=== PATIENT | male | born 1945 | race Caucasian/White ===

== ENCOUNTER 2017-01-08 15:45 | Inpatient (IN) | payer OTHER ==
--- NOTE | ~2017-01-08 | HP ---
History And Physical [id number] [facility] [place]. [address] NAME: NASRIN CARBAJAL : 41 STATUS : ADM IN [facility]#: [id number] AGE: 71 ADM/REG DATE : 01/08/17 MR#: [id number] REPORT SERV DATE: 01/08/17 DICTATED BY: ALEXANDER RINCON DATE: 01/08/17 REPORT STATUS : Draft TRANSCRIBED BY: MODJunior DATE: 01/08/17 DATE OF ADMISSION: 01/08/2017 CHIEF COMPLAINT: Fever, chills, shortness of breath, unable to move. HISTORY OF PRESENT ILLNESS: Obtained from the patient and emergency room documents, and there were no real prior medical records available for us to review. According to the information available, the patient is a pleasant 71-year-old white man, living alone, with history of heavy smoker, two packs of cigarettes daily for 65 years, presented to the emergency room with the above complaints of fever, nausea, generalized weakness, myalgias. The patient stated the symptoms started for a couple of days with a temperature of 103 at home yesterday prior to admission. Denies any cough, but seen very malaise and weak with increased urinary frequency, unable to get around due to his symptoms. In the emergency room, the patient was evaluated. He was noticed to be very ill appearing with oxygen saturation around 88% in room air, up to 99% on 2 L and after nebulizer treatment given. Further investigation reveal a sepsis syndrome as well as multilobar pneumonia/infiltrates. Therefore, the patient was referred to the Hospitalist Service for further management and evaluation. Please note, that initially the patient was referred to intensive care/critical care, but the patient was evaluated in the emergency room by a critical care/rn concurrent review, and therefore Hospitalist Service was involved. The patient denies any significant cough or productive cough. Denies any chest pain or palpitations. Denies any hemoptysis. Denies any weight loss or change in appetite recently. Denies any URI-like symptoms or runny nose or any contact outside of the area or contact with persons that travel outside of the area. Denies any recent travel outside in the [place] where risk for tick bites or insect borne disease. No one else around him is sick. He is not up to date with his influenza and pneumonia vaccinations. He continues to smoke up to his emergency room arrival. PAST MEDICAL HISTORY: As above. Significant for diabetes type 2, insulin dependent; history of asthma/COPD and heavy smoker, mentioned above. Please note, the patient may have hypertension as diagnosis. Apparently, the patient's primary care provider have him taking some lisinopril, which the patient stated he has been taking it in a while and now. PAST SURGICAL HISTORY: No surgeries or intervention in the past. SOCIAL HISTORY: He is retired. He is single. Lives by himself. He smokes two pack of cigarettes daily for 65 years as per patient (! and ?). Denies alcohol abuse. Denies illicit recreational drug abuse. FAMILY HISTORY: Significant for hypertension, diabetes. ALLERGIES: NO KNOWN DRUG ALLERGIES. HOME MEDICATIONS: According to the list provided, the patient stated that the only thing he takes presently, the patient has listed albuterol MDI two puffs inhalation q.6 hours p.r.n. shortness of breath; Lantus insulin 20-40 units subcu daily, the patient takes it p.r.n. for blood sugar more than 300; also metformin 850 mg p.o. b.i.d. History And Physical [address] [address] NAME: NASRIN CARBAJAL : 41 STATUS : ADM IN [facility]#: [id number] AGE: 71 ADM/REG DATE : 01/08/17 MR#: [id number] REPORT SERV DATE: 01/08/17 DICTATED BY: ALEXANDER RINCON DATE: 01/08/17 REPORT STATUS : Draft TRANSCRIBED BY: MODL DATE: 01/08/17 REVIEW OF SYSTEMS: As per H and P, otherwise negative in all review of systems. Please note, the comprehensive review of systems obtained and pertinent positives were including in the H and P. PHYSICAL EXAMINATION: GENERAL: Pleasant, cooperative, but pale, frail, very ill appearing. VITAL SIGNS: Upon arrival in the emergency room, showed blood pressure 138/69; pulse 114; respiratory rate 30; temperature 98.3 initially, up to 101.1 during his stay in the emergency room; oxygen saturation 88% in room air, up to 99% on 2 L by nasal cannula and after nebulizer treatment. HEENT: Pupils are equal, round, reactive to light. Extraocular movements intact. Throat, mild erythema. No exudate. No signs of tenderness. NECK: Supple. No JVD. No bruits. No thyromegaly. No lymph nodes. LUNGS: Bilateral air entry. Distant with coarse rhonchi and crackles, bilateral lung perla. Few scattered wheezes, partially cleared with coughing. HEART: Positive S1, S2. Regular rate and rhythm. Tachycardic. Positive mitral regurgitation murmur at the apex. No rub. No gallop. PMI not displaced by palpation. ABDOMEN: Positive bowel sounds. Soft, obese, nontender, no guarding, no hepatosplenomegaly. EXTREMITIES: Decreased range of motion. Osteoarthritic changes. No clubbing, no cyanosis, no edema. No calf tenderness. +2 pulses. NEUROLOGIC: Alert and oriented x3. Grossly nonfocal. Mild generalized weakness. Cranial nerves 2 through 12 grossly intact. Motor strength 5/5 symmetrical and bilateral. Deep tendon reflexes, 2/2, symmetrical and bilateral. BACK: With decreased range of motion. No focal localized tenderness. No CVA tenderness. SKIN: No bruises, no rashes, no lacerations. SIGNIFICANT LABORATORY DATA: Chest x-ray (personal reading) showed multifocal opacities, right and left lung perla (? postobstructive). EKG (personal reading) showed sinus tachycardia at 109 beats per minute. No acute ST elevation. ABG done in room air showed pH 7.43/PaCO2 of 32/pO2 of 54 (21% FiO2). Urinalysis showed protein 33.0, negative LE, negative nitrite, rbc's 7, lactate 1.9. Sodium 135, potassium 3.8, chloride 100, bicarb 29, BUN 15, creatinine 1.34, glucose 325, calcium 8.7. Liver function tests within normal limits. Lipase 112. White cell count 14.9, hemoglobin 12.5, platelet count 103. PTT 40.4 with a PT 15.8. ASSESSMENT AND PLAN/PROBLEM LIST: The patient is a pleasant 71-year-old man admitted with sepsis and multilobar pneumonia. IMPRESSION: 1. Sepsis due to pneumonia with several criteria as documented in the chart. We are going to check a procalcitonin level. Obtain blood cultures, sputum culture, and monitor clinical response to medical treatment. Provide antibiotic coverage as per pneumonia protocol. 2. Pulmonary:. a. Pneumonia, but likely bacterial, multilobar, right and left lobe. History And Physical [address] [address] NAME: NASRIN CARBAJAL : 41 STATUS : ADM IN [facility]#: [id number] AGE: 71 ADM/REG DATE : 01/08/17 MR#: [id number] REPORT SERV DATE: 01/08/17 DICTATED BY: ALEXANDER RINCON DATE: 01/08/17 REPORT STATUS : Draft TRANSCRIBED BY: MODJunior DATE: 01/08/17 b. Chronic obstructive pulmonary disease exacerbation. c. Acute hypoxemic respiratory failure. d. Tobacco dependence disorder. e. Possible lung masses and possible postobstructive pneumonia. For all the above, the patient has been placed on the monitored setting. Provide adequate oxygen supplementation, bronchodilator therapy including Dulera 200/5 mcg two puffs b.i.d. and DuoNeb. Provide antibiotic coverage with Levaquin 750 mg IV daily. Obtain sputum culture and blood cultures. Monitor lactate level as for sepsis protocol in 3 hours from the initial one and check a procalcitonin level. Provide smoking cessation education and offer nicotine replacement therapy as a nicotine patch 21 mg daily. We will obtain a CT scan of the chest without contrast to evaluate for possible lung mass/postobstructive pneumonia. 1. Diabetes type 2, uncontrolled, insulin dependent, with complications. Continue long- acting insulin, Levemir 15 units subcu b.i.d. Hold metformin for now. Use sliding scale. Provide diabetic education. 2. Hematologic problem:. a. Thrombocytopenia/low platelets. Continue to monitor for now (question etiology). b. Coagulopathy with elevated PT and INR. Continue to monitor for now. No signs of obvious bleeding at this moment. 3. Anemia, normocytic. Continue to monitor H and H. 4. Acute kidney injury, mild. Provide adequate IV hydration. Monitor urinary output. 5. History of hypertension. Apparently, he supposed to take IRVING inhibitor in the past. Continue to monitor for now. Use IV hydralazine p.r.n. for increased blood pressure. PROGNOSIS: Moderate for this admission. Discussed with patient. Patient's questions were answered in full. Please note, the patient is a full code at this moment as discussed with the patient at bedside. Please note, also the written H and P, written orders, and instructions. Please note, there were more than 35+ minutes spent of critical care time during this admission process. MAIA/MARILYNN Alexander Rincon M.D. / [id number] CC: Monique Singh M.D.
--- NOTE | ~2017-01-08 | DS ---
Discharge Summary [facility] [address] [place]. [address] NAME: NASRIN CARBAJAL : 41 STATUS : DIS IN PAT#: [id number] AGE: 71 ADM/REG DATE : 01/08/17 MR#: [id number] REPORT SERV DATE: 01/14/17 DICTATED BY: JOEY ALANIZ DATE: 01/13/17 REPORT STATUS : Draft TRANSCRIBED BY: MODL DATE: 01/13/17 ADMISSION DATE: 01/08/2017 DISCHARGE DATE: 01/13/2017 HISTORY OF PRESENT ILLNESS: The patient is a 71-year-old male with a history of diabetes type 2, hypertension, asthma/COPD, and tobacco abuse, who presented to the hospital with a complaint of fevers, chills, shortness of breath, and unable to move. For further details, please refer to H and P dictated by Dr. Petit on 01/08/2017. HOSPITAL COURSE: Upon presentation to the hospital, the patient was noted to be in sepsis, admitted to the intermediate care unit for further management. The patient was managed on IV antibiotics. His workup on initial presentation did note a positive chest x-ray consistent with pneumonia, which was the likely source of his sepsis. Also the same chest x ray also noted a mass in the left lower lobe. Given the patient being in sepsis, the patient was managed on IV antibiotics, with subsequent improvement in his symptoms. The patient was therefore transferred to a regular medical floor. I assumed care of the patient on 01/12/2017. At the time of my assumption of care, the patient was no longer septic and was hemodynamically stable. Upon chart review, I noted the chest x-ray finding with the concerning mass. CT scan with contrast was subsequently obtained, which noted around 6 x 4.5 x 6.6 cm mass in the left lower lobe suspicious for malignancy. Given the patient's risk factor of greater than 130 pack-year smoking history, I discussed the case with Radiology and from their standpoint the earliest that biopsy could be done would be on 01/15/2017. The radiologist also said that the patient could also be worked up as an outpatient. Given my concern of the patient being lost to followup, my initial plan was to keep the patient in-house for biopsy on Saturday, however, upon discussions with the patient, he informs me that he does have a primary care physician and that he would like for the mass to be worked up on an outpatient basis stating that he would be compliant with followup. Also, an attempt was made to schedule the patient prior to discharge, however, given that today is Saturday and offices are closed, this proved difficult. The floor community youth secretary then assessed by researching better discharge alternatives, so plan that was developed is that order will be written for the biopsy, it will be faxed over to the processor, so that the order can be placed for the patient to have the biopsy on 01/15/2017. Also given his significant smoking history, the patient have been counseled on the urgency of cessation of tobacco use. The patient voiced understanding and is willing to comply. Plan will be to discharge the patient on a nicotine patch and the patient has been instructed to quit smoking and avoid to secondhand smoke, which he is agreeable to. The patient, therefore, will be discharged today, to follow with the lung biopsy on 01/15/2017. Plan has been discussed with the patient, who voices understanding and is agreeable with this plan. All questions were answered and all concerns addressed. DISCHARGE DIAGNOSES: 1. Left lower lung lobe mass. 2. Pneumonia. 3. Chronic obstructive pulmonary disease exacerbation. 4. Diabetes, type 2. 5. Obesity. Discharge Summary [address] [address] NAME: NASRIN CARBAJAL : 41 STATUS : DIS IN PAT#: [id number] AGE: 71 ADM/REG DATE : 01/08/17 MR#: [id number] REPORT SERV DATE: 01/14/17 DICTATED BY: JOEY ALANIZ DATE: 01/13/17 REPORT STATUS : Draft TRANSCRIBED BY: MARILYNN DATE: 01/13/17 6. Tobacco abuse. 7. Tobacco abuse counseling. DISCHARGE MEDICATIONS: 1. Ceftin 500 mg p.o. b.i.d. 2. Insulin Lantus 20 to 40 units subcu daily p.r.n. 3. Metformin 850 mg p.o. with breakfast and dinner. The patient has been instructed not to take metformin for the next 48 hours. The patient to resume metformin on 01/15/2017. 4. Nicotine transdermal 21 mg topical daily. 5. Albuterol 2 puff inhalations q.6 hours p.r.n. IMAGIN. Portable chest x-ray. Impression: Multifocal masslike opacities involving the right and left lung concerning for multifocal infection, given the clinical history underlying malignancy may be present as well. 2. COPD. Chest CT with contrast. Impression: Round 6 x 4.5 x 6.6 cm mass left lower lobe suspicious for malignancy until proven otherwise. 3. Large acute right upper lobe pneumonia. 4. Mildly enlarged mediastinal lymph nodes, which may represent reactive adenopathy or metastatic disease. 5. Bibasilar atelectasis and small pleural effusion. DISPOSITION: The patient will be discharged home to follow up with primary care physician and Radiology as outpatient for biopsy on 01/15/2017. ACTIVITY: As tolerated. DIET: Diabetic diet. Greater than 40 minutes was spent providing counseling, discussion of case with consultants, discussion of case with nursing staff, coordinating discharge, medication reconciliation, writing prescription. DICTATED BY: MD CURTIS Beaulieu/MARILYNN Joey Alaniz MD / [id number] CC: Discharge Summary [address] [address] NAME: NASRIN CARBAJAL : 41 STATUS : DIS IN PAT#: [id number] AGE: 71 ADM/REG DATE : 01/08/17 MR#: [id number] REPORT SERV DATE: 01/14/17 DICTATED BY: JOEY ALANIZ DATE: 01/13/17 REPORT STATUS : Draft TRANSCRIBED BY: MODJunior DATE: 01/13/17 MD Viraj Beaulieu M.D.
[2017-01-08 14:41] LABS: WBC (NOT ORDERED) (RFLEX) 0 (0-5)
[2017-01-08 14:44] LABS: BASOPHILS 0.2 %; BASOPHILS ABSOLUTE 0.03 10/3/uL (0.0-0.16); EOSINOPHILS 0.1 %; EOSINOPHILS ABSOLUTE 0.01 10/3/uL (0.0-0.53); HEMOGLOBIN 12.5 g/dL (13.6-17.8); IMMATURE GRANULOCYTES 0.3 %; LYMPHOCYTES 49.5 %; LYMPHOCYTES ABSOLUTE 7.36 10/3/uL (0.67-4.30); MEAN CORPUS HGB CONC 32.9 g/dL (32.0-36.0); MEAN CORPUSCULAR HEMOGLOB 26.6 pg (26.0-34.0); MEAN PLATELET VOLUME 10.1 fL (9.2-13.0); MONOCYTES 5.6 %; MONOCYTES ABSOLUTE 0.84 10/3/uL (0.21-1.20); NEUTROPHILS 44.3 %; NEUTROPHILS ABSOLUTE 6.58 10/3/uL (2.02-8.40); PLATELET COUNT 103 10/3/uL (150-400); RBC DISTRIBUTION WIDTH 14.5 % (12.0-16.0); WHITE BLOOD CELLS 14.9 10/3/uL (4.5-10.5)
[2017-01-08 14:45] LABS: IMMATURE GRANULOCYTES ABSOLUTE 0.05 10/3/uL (0.0-0.11); MANUAL DIFF NO %; MEAN CORPUSCULAR VOLUME 80.9 fL (80-100)
[2017-01-08 14:53] LABS: INTERNATIONAL NORMAL RATI 1.3 UNITS (-); PARTIAL THROMBO TIME 40.4 SEC (22.5-37.2); PROTIME (NOT ORD) 15.8 SEC (12.0-14.5)
[2017-01-08 15:01] LABS: ALBUMIN 3.5 G/DL (3.5-5.0); ALKALINE PHOSPHATASE 39 U/L (45-117); BUN (BLOOD UREA NITROGEN) 15 MG/DL (6-23); CALCIUM, SERUM 8.7 MG/DL (8.5-10.4); CHLORIDE, SERUM 100 MMOL/L (96-112); CO2 (CARBON DIOXIDE) 29 MMOL/L (24-34); CREATININE 1.34 MG/DL (0.70-1.30); GFR AFRICAN AMERICAN 60 ML/MIN (>=60); GFR NON AFRICAN AMERICAN 52 ML/MIN (>=60); LACTATE 1.9 MMOL/L (0.3-2.4); POTASSIUM, SERUM 3.8 MMOL/L (3.5-5.3); SGOT(AST) 13 U/L (5-40); SGPT(ALT) 22 U/L (5-65); SODIUM, SERUM 135 MMOL/L (135-148); TOTAL PROTEIN 7.2 G/DL (6.0-8.5)
[2017-01-08 15:02] LABS: ASCORBIC ACID (UR NOT ORDER) NEG (NEG); BILIRUBIN, URINE NEGATIVE (NEG); ER URINALYSIS TAT 0 Hrs 22 Mins; KETONE, URINE NEGATIVE (NEG); LEUKOCYTE ESTERASE(NOT OR NEG (NEG); NITRITE (URINE) NEG (NEG)
[2017-01-08 15:06] LABS: A/G RATIO 0.9 (0.7-1.9); GLOBULIN 3.7 G/DL (2.5-4.1); GLUCOSE, SERUM 325 MG/DL (60-99)
[2017-01-08 15:17] LABS: BASOPHILS 1 %; BASOPHILS ABSOLUTE (CALC) 0.15 10/3/uL (0.0-0.16); ER DIFF TAT 0 Hrs 37 Mins; LYMPHOCYTES 30 %; LYMPHOCYTES ABSOLUTE (CALC) 4.47 10/3/uL (0.67-4.30); MONOCYTES 3 %; MONOCYTES ABSOLUTE (CALC) 0.45 10/3/uL (0.21-1.20); NEUTROPHILS ABSOLUTE (CALC) 9.83 10/3/uL (2.02-8.40); SEGMENTED NEUTROPHIL (0) 66 %; TOTAL NUCLEATED CELLS 100
[2017-01-08 15:21] LABS: PATH REVIEW YES; SMUDGE CELLS OCC
[2017-01-08 15:22] LABS: TEARDROP SHAPED RBCS FEW (3-10/OIF)
[2017-01-08 15:23] LABS: PLATELET ESTIMATE SLT DEC (ADEQUATE)
[~2017-01-08 15:45] MED LIST: GLUCPH8 PO; LANTUS SC; PROAIR HFA INH
[2017-01-08 17:20] LABS: CK-MB < 0.5 NG/ML; CPK 98 U/L (0-200)
[2017-01-08 23:02] LABS: HEMOGLOBIN 11.3 g/dL (13.6-17.8); MEAN CORPUS HGB CONC 33.4 g/dL (32.0-36.0); MEAN CORPUSCULAR HEMOGLOB 27.3 pg (26.0-34.0); MEAN CORPUSCULAR VOLUME 81.6 fL (80-100); MEAN PLATELET VOLUME 10.5 fL (9.2-13.0); PLATELET COUNT 93 10/3/uL (150-400); RBC DISTRIBUTION WIDTH 14.4 % (12.0-16.0); RED CELL COUNT 4.14 10/6/uL (4.7-6.1)
[2017-01-08 23:07] LABS: HEMATOCRIT 33.8 % (40.0-51.0)
[2017-01-08 23:08] LABS: DIFFERENTIAL ORDERED Y
[2017-01-08 23:22] LABS: BUN (BLOOD UREA NITROGEN) 18 MG/DL (6-23); CALCIUM, SERUM 8.1 MG/DL (8.5-10.4); CHLORIDE, SERUM 104 MMOL/L (96-112); CREATININE 1.19 MG/DL (0.70-1.30); GFR AFRICAN AMERICAN 70 ML/MIN (>=60); GFR NON AFRICAN AMERICAN 60 ML/MIN (>=60); GLUCOSE, SERUM 267 MG/DL (60-99); PHOSPHORUS, SERUM 1.7 MG/DL (2.5-4.5); POTASSIUM, SERUM 3.9 MMOL/L (3.5-5.3); SODIUM, SERUM 136 MMOL/L (135-148)
[2017-01-08 23:23] LABS: CO2 (CARBON DIOXIDE) 24 MMOL/L (24-34)
[2017-01-08 23:28] LABS: BAND NEUTROPHILS 6 %; LYMPHOCYTES 33 %; LYMPHOCYTES ABSOLUTE (CALC) 3.63 10/3/uL (0.67-4.30); MONOCYTES 3 %; MONOCYTES ABSOLUTE (CALC) 0.33 10/3/uL (0.21-1.20); NEUTROPHILS ABSOLUTE (CALC) 7.04 10/3/uL (2.02-8.40); PLATELET ESTIMATE DEC (ADEQUATE); RBC MORPHOLOGY NORM (NORMAL); SEGMENTED NEUTROPHIL (0) 58 %; TOTAL NUCLEATED CELLS 100
[2017-01-08 23:43] LABS: ASCORBIC ACID (UR NOT ORDER) NEG (NEG); BILIRUBIN, URINE NEGATIVE (NEG); KETONE, URINE NEGATIVE (NEG); LEUKOCYTE ESTERASE(NOT OR NEG (NEG); WBC (NOT ORDERED) (RFLEX) 2 (0-5)
[2017-01-09 06:05] LABS: INTERNATIONAL NORMAL RATI 1.4 UNITS (-); PROTIME (NOT ORD) 17.4 SEC (12.0-14.5)
[2017-01-09 06:06] LABS: PARTIAL THROMBO TIME 46.3 SEC (22.5-37.2)
[2017-01-09 06:30] LABS: CPK 104 U/L (0-200); FREE T4 1.09 NG/DL (0.76-1.46); PHOSPHORUS, SERUM 2.2 MG/DL (2.5-4.5); TROPONIN I <0.02 NG/ML (<0.05)
[2017-01-09 06:32] LABS: CK-MB 0.9 NG/ML
[2017-01-09 06:51] LABS: B NATRIURETIC PEPTIDE (BNP) 21.7 PG/ML (< 100.0)
[2017-01-09 06:58] LABS: PROCALCITONIN 0.33 ng/mL (<0.5)
[2017-01-09 08:04] LABS: GLYCOHEMOGLOBIN (HbA1c) 9.6 % (4.7-6.1)
[2017-01-10 06:23] LABS: HEMOGLOBIN 10.2 g/dL (13.6-17.8); MANUAL DIFF YES %; MEAN CORPUS HGB CONC 32.9 g/dL (32.0-36.0); MEAN CORPUSCULAR HEMOGLOB 26.8 pg (26.0-34.0); MEAN CORPUSCULAR VOLUME 81.4 fL (80-100); MEAN PLATELET VOLUME 10.2 fL (9.2-13.0); PLATELET COUNT 101 10/3/uL (150-400); RBC DISTRIBUTION WIDTH 14.4 % (12.0-16.0); RED CELL COUNT 3.81 10/6/uL (4.7-6.1); WHITE BLOOD CELLS 9.9 10/3/uL (4.5-10.5)
[2017-01-10 06:44] LABS: CALCIUM, SERUM 8.3 MG/DL (8.5-10.4); CHLORIDE, SERUM 107 MMOL/L (96-112); CO2 (CARBON DIOXIDE) 22 MMOL/L (24-34); CREATININE 0.94 MG/DL (0.70-1.30); GFR AFRICAN AMERICAN 93 ML/MIN (>=60); GFR NON AFRICAN AMERICAN 80 ML/MIN (>=60); POTASSIUM, SERUM 3.8 MMOL/L (3.5-5.3); SODIUM, SERUM 136 MMOL/L (135-148)
[2017-01-10 06:45] LABS: BAND NEUTROPHILS 16 %; BASOPHILS 1 %; BUN (BLOOD UREA NITROGEN) 12 MG/DL (6-23); GLUCOSE, SERUM 185 MG/DL (60-99); LYMPHOCYTES 57 %; LYMPHOCYTES ABSOLUTE (CALC) 5.64 10/3/uL (0.67-4.30); MONOCYTES 1 %; NEUTROPHILS ABSOLUTE (CALC) 4.06 10/3/uL (2.02-8.40); PLATELET ESTIMATE SLT DEC (ADEQUATE); SEGMENTED NEUTROPHIL (0) 25 %; SMUDGE CELLS FEW; TOTAL NUCLEATED CELLS 100
[2017-01-10 06:46] LABS: RBC MORPHOLOGY NORM (NORMAL)
[2017-01-11 06:02] LABS: HEMATOCRIT 30.8 % (40.0-51.0); MEAN CORPUS HGB CONC 32.5 g/dL (32.0-36.0); MEAN CORPUSCULAR HEMOGLOB 26.7 pg (26.0-34.0); MEAN CORPUSCULAR VOLUME 82.4 fL (80-100); MEAN PLATELET VOLUME 10.2 fL (9.2-13.0); PLATELET COUNT 103 10/3/uL (150-400); RBC DISTRIBUTION WIDTH 14.5 % (12.0-16.0); RED CELL COUNT 3.74 10/6/uL (4.7-6.1); WHITE BLOOD CELLS 9.2 10/3/uL (4.5-10.5)
[2017-01-11 06:05] LABS: MANUAL DIFF YES %
[2017-01-11 06:21] LABS: BUN (BLOOD UREA NITROGEN) 11 MG/DL (6-23); CALCIUM, SERUM 8.1 MG/DL (8.5-10.4); CHLORIDE, SERUM 109 MMOL/L (96-112); CO2 (CARBON DIOXIDE) 25 MMOL/L (24-34); CREATININE 0.91 MG/DL (0.70-1.30); GFR AFRICAN AMERICAN 97 ML/MIN (>=60); GFR NON AFRICAN AMERICAN 83 ML/MIN (>=60); POTASSIUM, SERUM 3.8 MMOL/L (3.5-5.3); SODIUM, SERUM 139 MMOL/L (135-148)
[2017-01-11 06:22] LABS: GLUCOSE, SERUM 129 MG/DL (60-99)
[2017-01-11 06:34] LABS: BAND NEUTROPHILS 9 %; LYMPHOCYTES 57 %; LYMPHOCYTES ABSOLUTE (CALC) 5.24 10/3/uL (0.67-4.30); MONOCYTES 2 %; MONOCYTES ABSOLUTE (CALC) 0.18 10/3/uL (0.21-1.20); NEUTROPHILS ABSOLUTE (CALC) 3.77 10/3/uL (2.02-8.40); PLATELET ESTIMATE SLT DEC (ADEQUATE); SEGMENTED NEUTROPHIL (0) 32 %; TOTAL NUCLEATED CELLS 100
[2017-01-11 06:35] LABS: RBC MORPHOLOGY NORM (NORMAL)
[2017-01-11 06:39] LABS: SMUDGE CELLS OCC
[2017-01-12 04:27] LABS: BUN (BLOOD UREA NITROGEN) 13 MG/DL (6-23); CALCIUM, SERUM 8.4 MG/DL (8.5-10.4); CHLORIDE, SERUM 110 MMOL/L (96-112); CO2 (CARBON DIOXIDE) 23 MMOL/L (24-34); CREATININE 0.79 MG/DL (0.70-1.30); GFR AFRICAN AMERICAN 103 ML/MIN (>=60); GFR NON AFRICAN AMERICAN 89 ML/MIN (>=60); POTASSIUM, SERUM 3.9 MMOL/L (3.5-5.3); SODIUM, SERUM 140 MMOL/L (135-148)
[2017-01-12 04:29] LABS: GLUCOSE, SERUM 163 MG/DL (60-99)
[2017-01-13 07:12] LABS: HEMATOCRIT 32.1 % (40.0-51.0); HEMOGLOBIN 10.1 g/dL (13.6-17.8); MEAN CORPUS HGB CONC 31.5 g/dL (32.0-36.0); MEAN CORPUSCULAR HEMOGLOB 26.2 pg (26.0-34.0); MEAN CORPUSCULAR VOLUME 83.4 fL (80-100); PLATELET COUNT 103 10/3/uL (150-400); RBC DISTRIBUTION WIDTH 14.6 % (12.0-16.0); RED CELL COUNT 3.85 10/6/uL (4.7-6.1); WHITE BLOOD CELLS 9.4 10/3/uL (4.5-10.5)
[2017-01-13 07:14] LABS: MANUAL DIFF YES %
[2017-01-13 07:37] LABS: A/G RATIO 0.8 (0.7-1.9); ALBUMIN 2.6 G/DL (3.5-5.0); ALKALINE PHOSPHATASE 34 U/L (45-117); BUN (BLOOD UREA NITROGEN) 9 MG/DL (6-23); CALCIUM, SERUM 8.9 MG/DL (8.5-10.4); CHLORIDE, SERUM 110 MMOL/L (96-112); CO2 (CARBON DIOXIDE) 26 MMOL/L (24-34); CREATININE 0.78 MG/DL (0.70-1.30); GFR AFRICAN AMERICAN 104 ML/MIN (>=60); GFR NON AFRICAN AMERICAN 90 ML/MIN (>=60); GLOBULIN 3.4 G/DL (2.5-4.1); GLUCOSE, SERUM 146 MG/DL (60-99); POTASSIUM, SERUM 3.9 MMOL/L (3.5-5.3); SGOT(AST) 39 U/L (5-40); SGPT(ALT) 42 U/L (5-65); SODIUM, SERUM 142 MMOL/L (135-148); TOTAL BILIRUBIN 0.5 MG/DL (0-1.2)
[2017-01-13 07:49] LABS: LYMPHOCYTES 67 %; MONOCYTES 3 %; MONOCYTES ABSOLUTE (CALC) 0.28 10/3/uL (0.21-1.20); NEUTROPHILS ABSOLUTE (CALC) 2.82 10/3/uL (2.02-8.40); PLATELET ESTIMATE SLT DEC (ADEQUATE); RBC MORPHOLOGY NORM (NORMAL); SEGMENTED NEUTROPHIL (0) 30 %; TOTAL NUCLEATED CELLS 100
[2017-01-13] MEDS ORDERED: HABIT21 TOP (11:01)
[2017-01-13] MEDS ORDERED: FLOMAX4 PO (11:02)
[2017-01-13] MEDS ORDERED: CEFT5 PO (11:03)
[2017-01-17] MEDS ORDERED: LANTUSCART SC (16:06)
[2017-01-24] MEDS ORDERED: L40 PO (10:14)
[2017-01-24] MEDS ORDERED: NORCO1 TAB PO (10:15)
[2017-01-24] MEDS ORDERED: KLOR-CON M2020 MEQ PO (10:16)
[2017-01-24] MEDS ORDERED: FLONASE NAS (10:17)
[2017-03-04] MEDS ORDERED: IBU800 PO (08:46)
[2017-03-04] MEDS ORDERED: CHANTIX0.5 PO (13:48)
[2017-03-07] MEDS ORDERED: PCET PO (09:34)
== END 2017-01-13 11:45 | disposition home or self-care (01) | DRG 871 ==
LOC: ER 15:45 → IMCU 17:27 → 5SO 01-09 13:11
PROVIDERS: Emergency Medicine; Hospitalist; Internal Medicine
DX: A41.9 Sepsis, unspecified organism (principal); J18.9 Pneumonia, unspecified organism; J96.01 Acute respiratory failure with hypoxia; N17.9 Acute kidney failure, unspecified; J90 Pleural effusion, not elsewhere classified; D69.6 Thrombocytopenia, unspecified; E11.65 Type 2 diabetes mellitus with hyperglycemia; D64.9 Anemia, unspecified; J44.0 Chronic obstructive pulmonary disease with (acute) lower respiratory infection; J44.1 Chronic obstructive pulmonary disease with (acute) exacerbation; J98.11 Atelectasis; F17.210 Nicotine dependence, cigarettes, uncomplicated; I10 Essential (primary) hypertension; R91.8 Other nonspecific abnormal finding of lung field; E66.9 Obesity, unspecified; Z71.6 Tobacco abuse counseling; Z79.4 Long term (current) use of insulin; Z79.899 Other long term (current) drug therapy; Z79.84 Long term (current) use of oral hypoglycemic drugs; Z68.34 Body mass index [BMI] 34.0-34.9, adult
CPT/HCPCS: 36600; 71010; 71260; 80048; 80053; 80069; 81001; 82330; 82550; 82553; 82803; 82947; 82962; 83036; 83605; 83690; 83735; 83880; 84100; 84132; 84145; 84295; 84439; 84443; 84484; 85007; 85014; 85025; 85027; 85610; 85730; 87040; 87070; 87205; 87449; 87641; 93005; 94640; 96374; 96375; 99291; A9270-GY; J0692; J1956; J2405; J3370; Q9967